=== PATIENT | male | born 1960 | race Two or more races ===

== ENCOUNTER 2019-07-01 09:41 | Outpatient (CLI) | payer OTHER ==
[2019-07-01] MEDS ORDERED: LOSARTAN-HCTZ1 EAC2 PO (14:56)
[2019-07-01] MEDS ORDERED: OMEPRAZOLE40 MG PO (14:56)
[2019-07-01] MEDS ORDERED: AMLODIPINE BESYL5 MG PO (14:56)
[2019-07-01] MEDS ORDERED: PRAVASTATIN SOD40 MG PO (14:56)
[2019-07-01] MEDS ORDERED: GLIMEPIRIDE2 MG PO (14:57)
[2019-07-01] MEDS ORDERED: METFORMIN HCL500 MG PO (14:57)
== END 2019-07-01 09:51 | disposition home or self-care (01) ==
LOC: RAD 09:41
DX: K64.2 Third degree hemorrhoids (principal); D50.8 Other iron deficiency anemias; K62.5 Hemorrhage of anus and rectum

== ENCOUNTER 2019-07-14 05:40 | Day surgery (SDC) | payer OTHER ==
[~2019-07-14 05:40] MED LIST: AMLODIPINE BESYL5 MG PO; GLIMEPIRIDE2 MG PO; LOSARTAN-HCTZ1 EAC2 PO; METFORMIN HCL500 MG PO; OMEPRAZOLE40 MG PO; PRAVASTATIN SOD40 MG PO
[2019-07-14] MEDS ORDERED: PERCOCET 5-3251 EACH PO (10:26)
[2019-07-14] MEDS ORDERED: KETO10TA2 PO (10:27)
[2019-07-14] MEDS ORDERED: RECTICARE30 GM TOP (10:27)
== END 2019-07-14 14:00 | disposition home or self-care (01) ==
LOC: CIR.AMB 05:40
DX: K64.8 Other hemorrhoids (principal); K64.4 Residual hemorrhoidal skin tags